=== PATIENT | male | born 1980 | race Caucasian/White ===

== ENCOUNTER 2018-10-22 15:31 | Emergency (ER) | payer OTHER ==
[~2018-10-22] VITALS: Ht 182.9 cm; Wt 68.0 kg
[~2018-10-22 15:31] MED LIST: AMOX500 PO
[2018-10-22 15:57] LABS: BASOPHILS ABSOLUTE AUTO 0.02 K/mm3 (0.00-0.23); BASOPHILS PERCENT AUTO 0 % (0-2); EOSINOPHILS ABSOLUTE AUTO 0.07 K/mm3 (0.00-0.68); EOSINOPHILS PERCENT AUTO 1 % (0-6); Hematocrit 46.6 % (37.0-53.0); Hemoglobin 16.2 g/dL (13.5-17.5); IMMATURE GRAN ABSOLUTE AUTO 0.02 K/mm3 (0.00-0.10); IMMATURE GRAN PERCENT AUTO 0 % (0-1); LYMPHOCYTES ABSOLUTE AUTO 1.56 K/mm3 (0.84-5.20); LYMPHOCYTES PERCENT AUTO 17 % (21-46); MONOCYTES ABSOLUTE AUTO 0.68 K/mm3 (0.16-1.47); MONOCYTES PERCENT AUTO 8 % (4-13); Mean Corpuscular HGB 33.7 pg (26.0-34.0); Mean Corpuscular HGB Conc 34.8 g/dL (31.5-36.5); Mean Corpuscular Volume 97 fL (80-100); Mean Platelet Volume 9.5 fL (9.1-12.4); NEUTROPHILS ABSOLUTE AUTO 6.69 K/mm3 (1.96-9.15); NEUTROPHILS PERCENT AUTO 74 % (41-73); Platelet Count 205 K/mm3 (150-400); RDW Coefficient Variation 11.4 % (11.7-14.2); RDW Standard Deviation 41.2 fL (35.1-46.3); Red Blood Cell Count 4.81 M/mm3 (4.30-5.90); White Blood Cell Count 9.04 K/mm3 (4.00-11.30)
[2018-10-22 16:33] LABS: Alanine Aminotransfer (ALT/SGP 67 U/L (12-78); Albumin/Globulin Ratio 1.1 (0.8-1.8); Alk Phos 123 U/L (50-136); Anion Gap 9 mmol/L (6-16); Aspartate Aminotrans (AST/SGOT 57 U/L (12-37); Bilirubin, Total 1.2 mg/dL (0.1-1.0); Blood Urea Nitrogen 12 mg/dL (8-24); Bun/Creatinine Ratio 15.6 (12.0-20.0); CO2, Blood 26 mmol/L (21-32); Calcium, Blood 8.7 mg/dL (8.5-10.1); Chloride, Blood 103 mmol/L (98-108); Creatinine, Blood 0.77 mg/dL (0.60-1.20); Globulin, Blood 3.8 g/dL (2.2-4.0); Glomerular Filtration Rate >60 (60-); Glucose, Blood 145 mg/dL (70-99); Potassium, Blood 3.3 mmol/L (3.5-5.5); Sodium, Blood 138 mmol/L (136-145); Total Protein, Blood 7.8 g/dL (6.4-8.2)
== END 2018-10-22 19:25 | disposition left against medical advice (07) ==
LOC: ER 15:31
PROVIDERS: Physician Assistant
DX: S09.90XA Unspecified injury of head, initial encounter (principal); F10.239 Alcohol dependence with withdrawal, unspecified; G40.909 Epilepsy, unspecified, not intractable, without status epilepticus; W18.30XA Fall on same level, unspecified, initial encounter; F17.200 Nicotine dependence, unspecified, uncomplicated
CPT/HCPCS: 36415; 70450; 80053; 85025; 93005; 93010; 99284-25

== ENCOUNTER 2019-12-04 16:41 | Inpatient (IN) | payer OTHER ==
[~2019-12-04] VITALS: Ht 72.3 cm; Wt 72.6 kg
[2019-12-04 18:12] LABS: International Normalized Ratio 1.02; Prothrombin Time Results 10.9 Sec (9.7-11.5)
[2019-12-04 18:16] LABS: Source, Urine Clean Catch
[2019-12-04 18:27] LABS: Blood, Urine Neg (Neg); Glucose Qualitative, Urine Neg (Neg); Ketones, Urine Neg (Neg); Leukocyte Esterase, Urine Neg (Neg); Nitrite, Urine Neg (Neg); Protein, Urine Neg (Neg); Urobilinogen, Urine 2+ (Normal)
[2019-12-04 18:29] LABS: Appearance, Urine Clear (Clear); Bilirubin, Urine 2+ (Neg); Color, Urine Orange (P-Yellow)
--- NOTE | 2019-12-05 00:35 | NUR ---
PT UP TO ICU 2 FROM ED. REPORTS SEIZURE ACTIVITY IN ED POSS RELATED TO ETOH WITHDRAWAL. VSS, SBP IN THE 100S, HR IN THE 70-90S. SPO2 >90% ON RA, LUNG SOUNDS CLEAR. PT ABLE TO VOID AND TRANSFER ON OWN. 2 PIV-20G IN RFA AND LAC. BANANA BAG AND K RIDER INFUSING. WILL CONTINUE TO MONITOR
[2019-12-05 03:47] LABS: BASOPHILS ABSOLUTE AUTO 0.04 K/mm3 (0.00-0.23); BASOPHILS PERCENT AUTO 1 % (0-2); EOSINOPHILS ABSOLUTE AUTO 0.06 K/mm3 (0.00-0.68); EOSINOPHILS PERCENT AUTO 1 % (0-6); Hematocrit 37.4 % (37.0-53.0); Hemoglobin 12.2 g/dL (13.5-17.5); IMMATURE GRAN ABSOLUTE AUTO 0.04 K/mm3 (0.00-0.10); IMMATURE GRAN PERCENT AUTO 1 % (0-1); LYMPHOCYTES ABSOLUTE AUTO 1.78 K/mm3 (0.84-5.20); LYMPHOCYTES PERCENT AUTO 25 % (21-46); MONOCYTES ABSOLUTE AUTO 0.86 K/mm3 (0.16-1.47); MONOCYTES PERCENT AUTO 12 % (4-13); Mean Corpuscular HGB 33.2 pg (26.0-34.0); Mean Corpuscular HGB Conc 32.6 g/dL (31.5-36.5); Mean Platelet Volume 11.1 fL (9.1-12.4); NEUTROPHILS ABSOLUTE AUTO 4.35 K/mm3 (1.96-9.15); NEUTROPHILS PERCENT AUTO 61 % (41-73); Platelet Count 160 K/mm3 (150-400); RDW Coefficient Variation 14.3 % (11.7-14.2); RDW Standard Deviation 53.1 fL (35.1-46.3); Red Blood Cell Count 3.67 M/mm3 (4.30-5.90); White Blood Cell Count 7.13 K/mm3 (4.00-11.30)
[2019-12-05 03:49] LABS: Mean Corpuscular Volume 102 fL (80-100)
[2019-12-05 04:05] LABS: Alanine Aminotransfer (ALT/SGP 188 U/L (12-78); Albumin, Blood 2.3 g/dL (3.4-5.0); Albumin/Globulin Ratio 0.7 (0.8-1.8); Alk Phos 600 U/L (50-136); Anion Gap 5 mmol/L (6-16); Aspartate Aminotrans (AST/SGOT 232 U/L (12-37); Bilirubin, Total 9.7 mg/dL (0.1-1.0); Blood Urea Nitrogen 5 mg/dL (8-24); Bun/Creatinine Ratio 6.2 (12.0-20.0); CO2, Blood 29 mmol/L (21-32); Calcium, Blood 8.1 mg/dL (8.5-10.1); Chloride, Blood 100 mmol/L (98-108); Creatinine, Blood 0.81 mg/dL (0.60-1.20); Globulin, Blood 3.4 g/dL (2.2-4.0); Glomerular Filtration Rate >60 (60-); Glucose, Blood 119 mg/dL (70-99); Potassium, Blood 3.6 mmol/L (3.5-5.5); Sodium, Blood 134 mmol/L (136-145); Total Protein, Blood 5.7 g/dL (6.4-8.2)
--- NOTE | 2019-12-05 05:34 | NUR ---
SHIFT SUMMARY: PT A&O. CIWAS HAVE BEEN 0. NO SEIZURE ACTIVITY THUS FAR IN SHIFT. SBP 90-100S, HR IN THE 70S. LUNG SOUNDS CLEAR, PT DOES HAVE OCC NONPRODUCTIVE COUGH. SPO2 >90% ON RA. 2 PIV IN RFA NAD LAC. KRIDER IS INFUSING IN LAC. PT HAS NOT HAD ANY COMPLAINTS EXCEPT FOR HICCUPS THAT CAUSED HIM SOME NAUSEA. WILL PASS REPORT TO ONCOMING SHIFT
--- NOTE | 2019-12-05 07:35 | NUR ---
Received report from Baltazar BISWAS. Patient resting in bed on left side as he positions self in bed for comfort. He awakenes when in room and his speech clear and is able to communicate his needs. He nis wearing dark sun glasses in bed. He is anxious for breakfast. He sats 92% on RA. He has 2 IV's both dressings intact andsites WNL's; 20 ga IV in RFA flushed and 20 ga IV in LAC infusing NS with 20meq of K. No signs of seizure activity on noc shift and he denies this am. Urinal at bedside and he is able to use appropriately. GERHARD
--- NOTE | 2019-12-05 10:20 | NUR ---
Patient has been doing well. He tolerated breakfast without difficulty. He remains on RA and sats upper 90%. Independent in room. Dr Herrmann by and made medical without tele. He is going to 362 and called report to Sonny BISWAS
--- NOTE | 2019-12-05 11:20 | NUR ---
ASSUMED CARE PT ARRIVED TO THE MEDICAL FLOOR FROM THE ICU, A/OX3, PLEASANT AND COOPERATIVE, THE PT WAS ORIENTED TO THE ROOM LAYOUT AND CALL SYSTEM, THE DENIED ANY HEAD ACHE, NAUSEA, TREMORS HALUCINATIONS,SWEETS,OR ITCHING, PT IS UP STEADY ON HIS FEET
[2019-12-05 14:29] LABS: International Normalized Ratio 0.98; Prothrombin Time Results 10.5 Sec (9.7-11.5)
--- NOTE | 2019-12-05 16:56 | NUR ---
Chevy was talkative and open to companionship. He admits he is "probably alcoholic" but beleives he can quit on his own. Because he has "quit many times" on his own, I pointed out that quiting many times does not really sound like a successful track record, he states that "this time I mean it." Advised seeking help through 12-step program/counseling. 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 This is incongruent with AA's program. Regardless, Chevy does not apear to understand the seriousness of his illness, beleiveing that his liver, "will bounce back" b/c he has once again quit drinking. Chevy was personable and pleasant. He engaged well and appeared to enjoy companionship. He is non-oriental orthodox. I wished him well and will remain available.
--- NOTE | 2019-12-05 17:35 | NUR ---
PT IS A/OX3, PLEASANT AND COOPERTIVE, PT IS UP IND, THE PT WAS UP AMBULATING IN THE COLEMAN FREQUANTLY, THE PT APPEARS TO BE BREATHING EASILY ON RA, THE PT DENIED ANY WITHDRAWL SYMPTOMS OR SEIZURE SO FAR THIS SHIFT, THE PT IS JAUNDICE IN COLOR AND FEELS THAT HE IS MORE JAUNDICE THIS AFTERNOON COMPARED TO THIS AM, CALL LIGHT IN REACH, WILL CONTINUE TO MONITOR AND ASSESS FOR CHANGES
--- NOTE | 2019-12-06 03:42 | NUR ---
SHIFT SUMMARY PATIENT HAD NO ACUTE CHANGES OBSERVED. AXOX 4 AND INDEPENDENT IN ROOM. VSS/AFEBRILE. DENIES PAIN, SOB, AND N/V. NO WITHDRAWAL SYMPTONS OR SEIZURES THIS SHIFT. COOPERATIVE WITH CARE. CALL LIGHT IN REACH. BED IN LOWEST POSITION. WILL CONTINUE TO MONITOR UNTIL DAY SHIFT NURSE ASSUMES CARE.
[2019-12-06 08:10] LABS: HBSAG SCREEN Negative (Negative); HEP A AB, IGM Negative (Negative); HEP B CORE AB, IGM Negative (Negative); HEP C VIRUS AB 0.2 (0.0-0.9)
--- NOTE | 2019-12-06 17:17 | NUR ---
SHIFT SUMMARY PATIENT HAS HAD NO ACUTE ISSUES. FIRST DOSE OF KEPPRA GIVEN. INDEPENDENT, AMBULATING SELF AROUND COLEMAN, WATCHING TV MOST OF THE DAY.
--- NOTE | 2019-12-07 03:37 | NUR ---
SHIFT SUMMARY PATIENT HAD NO ACUTE CHANGES OBSERVED. AXOX 4 AND INDEPENDENT IN THE ROOM. DENIES PAIN, SOB, AND N/V. VSS/AFEBRILE. SCHEDULE PO KEPPRA GIVEN PER EMAR. PIV REMAINS INTACT. TAKES MEDICATION WHOLE WITH WATER. NO SEIZURES OBSERVED. CALL LIGHT IN REACH. BED IN LOWEST POSITION. WILL CONTINUE TO MONITOR UNTIL DAY SHIFT NURSE ASSUMES CARE.
[2019-12-07 05:15] LABS: Alanine Aminotransfer (ALT/SGP 127 U/L (12-78); Albumin, Blood 2.2 g/dL (3.4-5.0); Albumin/Globulin Ratio 0.6 (0.8-1.8); Alk Phos 461 U/L (50-136); Anion Gap 7 mmol/L (6-16); Aspartate Aminotrans (AST/SGOT 152 U/L (12-37); Bilirubin, Total 9.1 mg/dL (0.1-1.0); Blood Urea Nitrogen 5 mg/dL (8-24); Bun/Creatinine Ratio 5.5 (12.0-20.0); CO2, Blood 27 mmol/L (21-32); Calcium, Blood 8.4 mg/dL (8.5-10.1); Chloride, Blood 101 mmol/L (98-108); Creatinine, Blood 0.91 mg/dL (0.60-1.20); Globulin, Blood 3.5 g/dL (2.2-4.0); Glomerular Filtration Rate >60 (60-); Glucose, Blood 117 mg/dL (70-99); Magnesium, Blood 2.2 mg/dL (1.6-2.4); Potassium, Blood 3.5 mmol/L (3.5-5.5); Sodium, Blood 135 mmol/L (136-145); Total Protein, Blood 5.7 g/dL (6.4-8.2)
[2019-12-07] MEDS ORDERED: TUMS500 MG PO (11:14)
[2019-12-07] MEDS ORDERED: KEPPRA250 MG PO (11:15)
--- NOTE | 2019-12-07 13:22 | NUR ---
DISCHARGED, reviewed med, stay, procedures, discharge orders, need for gi consult, meeting with pcp, escorted to exit, a+o, many plans for future and changes he plans to implement in his life/health
== END 2019-12-07 12:00 | disposition home or self-care (01) | DRG 897 ==
LOC: ER 16:41 → ICUE 22:17 → ERHOLD 22:17 → MEDS 22:17 → ICUE 23:20 → MEDS 12-05 11:09 → ENPENDDIS 12-07 09:00 → MEDS 12-07 12:00
PROVIDERS: Emergency Medicine; Hospitalist; Internal Medicine; Nurse Practitioner Acute Care; ADMIT Family Medicine
DX: F10.239 Alcohol dependence with withdrawal, unspecified (principal); F31.60 Bipolar disorder, current episode mixed, unspecified; K70.10 Alcoholic hepatitis without ascites; R16.0 Hepatomegaly, not elsewhere classified; K76.0 Fatty (change of) liver, not elsewhere classified; F41.9 Anxiety disorder, unspecified; F43.10 Post-traumatic stress disorder, unspecified; F17.210 Nicotine dependence, cigarettes, uncomplicated
CPT/HCPCS: 36415; 74177; 76705; 80053; 80074; 81003; 82140; 82977; 83735; 85025; 85610; 85730; 96361; 96365-59; 96366; 96368; 96375; 99285-25; C9113; G0480; J2060; J2405; J3411; J3475; J3480; J7030; J7042; Q9967

== ENCOUNTER → 2019-12-04 | Outpatient (CLI) | payer OTHER ==
[2019-12-04 15:24] LABS: BASOPHILS ABSOLUTE AUTO 0.04 K/mm3 (0.00-0.23); BASOPHILS PERCENT AUTO 0 % (0-2); EOSINOPHILS ABSOLUTE AUTO 0.05 K/mm3 (0.00-0.68); EOSINOPHILS PERCENT AUTO 1 % (0-6); Hematocrit 40.2 % (37.0-53.0); IMMATURE GRAN ABSOLUTE AUTO 0.04 K/mm3 (0.00-0.10); IMMATURE GRAN PERCENT AUTO 0 % (0-1); LYMPHOCYTES ABSOLUTE AUTO 2.27 K/mm3 (0.84-5.20); LYMPHOCYTES PERCENT AUTO 22 % (21-46); MONOCYTES ABSOLUTE AUTO 1.04 K/mm3 (0.16-1.47); MONOCYTES PERCENT AUTO 10 % (4-13); Mean Corpuscular HGB 33.9 pg (26.0-34.0); Mean Corpuscular HGB Conc 34.8 g/dL (31.5-36.5); Mean Corpuscular Volume 97 fL (80-100); Mean Platelet Volume 11.1 fL (9.1-12.4); NEUTROPHILS ABSOLUTE AUTO 7.05 K/mm3 (1.96-9.15); NEUTROPHILS PERCENT AUTO 67 % (41-73); Platelet Count 170 K/mm3 (150-400); RDW Coefficient Variation 13.8 % (11.7-14.2); RDW Standard Deviation 49.5 fL (35.1-46.3); Red Blood Cell Count 4.13 M/mm3 (4.30-5.90); White Blood Cell Count 10.49 K/mm3 (4.00-11.30)
[2019-12-04 15:34] LABS: Alanine Aminotransfer (ALT/SGP 236 U/L (12-78); Albumin, Blood 2.8 g/dL (3.4-5.0); Albumin/Globulin Ratio 0.8 (0.8-1.8); Alk Phos 743 U/L (40-126); Anion Gap 11 mmol/L (6-16); Aspartate Aminotrans (AST/SGOT 288 U/L (12-37); Bilirubin, Total 12.2 mg/dL (0.1-1.0); Blood Urea Nitrogen 6 mg/dL (8-24); Bun/Creatinine Ratio 5.2 (12.0-20.0); CO2, Blood 26 mmol/L (21-32); Calcium, Blood 8.8 mg/dL (8.5-10.1); Chloride, Blood 95 mmol/L (98-108); Creatinine, Blood 1.15 mg/dL (0.60-1.20); Globulin, Blood 3.7 g/dL (2.2-4.0); Glomerular Filtration Rate >60 (60-); Glucose, Blood 150 mg/dL (70-99); Potassium, Blood 3.4 mmol/L (3.5-5.5); Sodium, Blood 132 mmol/L (136-145); Total Protein, Blood 6.5 g/dL (6.4-8.2)
[2019-12-05 08:09] LABS: HBSAG SCREEN Negative (Negative); HEP A AB, IGM Negative (Negative); HEP B CORE AB, IGM Negative (Negative); HEP C VIRUS AB <0.1 (0.0-0.9)
== END | disposition home or self-care (01) ==
LOC: LAB SHORT 15:15 → LAB EV 15:15
PROVIDERS: Physician Assistant
DX: H15.89 Other disorders of sclera (principal); R74.8 Abnormal levels of other serum enzymes
CPT/HCPCS: 80053; 80074; 83690; 85025

== ENCOUNTER 2020-09-19 12:38 | Emergency (ER) | payer OTHER ==
[~2020-09-19] VITALS: Ht 182.9 cm; Wt 74.8 kg
[~2020-09-19 12:38] MED LIST changes: +KEPPRA250 MG PO; +TUMS500 MG PO
[2020-09-19 14:38] LABS: BASOPHILS ABSOLUTE AUTO 0.02 K/mm3 (0.00-0.23); BASOPHILS PERCENT AUTO 0 % (0-2); EOSINOPHILS ABSOLUTE AUTO 0.02 K/mm3 (0.00-0.68); EOSINOPHILS PERCENT AUTO 0 % (0-6); Hematocrit 42.5 % (37.0-53.0); Hemoglobin 14.5 g/dL (13.5-17.5); IMMATURE GRAN ABSOLUTE AUTO 0.01 K/mm3 (0.00-0.10); IMMATURE GRAN PERCENT AUTO 0 % (0-1); LYMPHOCYTES ABSOLUTE AUTO 1.25 K/mm3 (0.84-5.20); LYMPHOCYTES PERCENT AUTO 17 % (21-46); MONOCYTES ABSOLUTE AUTO 0.77 K/mm3 (0.16-1.47); MONOCYTES PERCENT AUTO 11 % (4-13); Mean Corpuscular HGB 32.7 pg (26.0-34.0); Mean Corpuscular HGB Conc 34.1 g/dL (31.5-36.5); Mean Corpuscular Volume 96 fL (80-100); Mean Platelet Volume 9.8 fL (9.1-12.4); NEUTROPHILS PERCENT AUTO 71 % (41-73); Platelet Count 150 K/mm3 (150-400); RDW Coefficient Variation 13.2 % (11.7-14.2); RDW Standard Deviation 47.2 fL (35.1-46.3); Red Blood Cell Count 4.44 M/mm3 (4.30-5.90); White Blood Cell Count 7.17 K/mm3 (4.00-11.30)
[2020-09-19 15:00] LABS: Alanine Aminotransfer (ALT/SGP 417 U/L (12-78); Albumin, Blood 3.7 g/dL (3.4-5.0); Albumin/Globulin Ratio 0.9 (0.8-1.8); Alk Phos 131 U/L (50-136); Anion Gap 9 mmol/L (6-16); Aspartate Aminotrans (AST/SGOT 396 U/L (12-37); Bilirubin, Total 2.3 mg/dL (0.1-1.0); Blood Urea Nitrogen 15 mg/dL (8-24); Bun/Creatinine Ratio 21.7 (12.0-20.0); CO2, Blood 24 mmol/L (21-32); Calcium, Blood 8.8 mg/dL (8.5-10.1); Chloride, Blood 102 mmol/L (98-108); Creatinine, Blood 0.69 mg/dL (0.60-1.20); Globulin, Blood 3.9 g/dL (2.2-4.0); Glomerular Filtration Rate >60 (60-); Glucose, Blood 89 mg/dL (70-99); Potassium, Blood 4.1 mmol/L (3.5-5.5); Sodium, Blood 135 mmol/L (136-145); Total Protein, Blood 7.6 g/dL (6.4-8.2)
[2020-09-19 15:01] LABS: Ethanol (Alcohol), Blood, Med <3 mg/dL; Magnesium, Blood 2.1 mg/dL (1.6-2.4)
== END 2020-09-19 15:48 | disposition home or self-care (01) ==
LOC: ER 12:38
PROVIDERS: Emergency Medicine; Physician Assistant
DX: R53.1 Weakness (principal); F17.200 Nicotine dependence, unspecified, uncomplicated
CPT/HCPCS: 36415; 80053; 83690; 83735; 85025; 93005; 93010; 99285-25; G0480